=== PATIENT | male | born 1995 | race Caucasian/White ===

== ENCOUNTER 2017-09-24 21:26 | Emergency (ER) | payer MEDICAID ==
[~2017-09-24] VITALS: Ht 180.3 cm; Wt 117.9 kg
[2017-09-24 21:39] VITALS: BP 113/91
[2017-09-25] MEDS ORDERED: HYDROcodone-ACET 5/325MG TAB PO ONE (02:00)
== END 2017-09-25 02:09 | disposition home or self-care (01) ==
LOC: ER 21:26
DX: S13.4XXA Sprain of ligaments of cervical spine, initial encounter (principal); S10.93XA Contusion of unspecified part of neck, initial encounter; M62.838 Other muscle spasm; V43.92XA Unspecified car occupant injured in collision with other type car in traffic accident, initial encounter; Y93.89 Activity, other specified; Y99.8 Other external cause status; Y92.89 Other specified places as the place of occurrence of the external cause
CPT/HCPCS: 70450; 71045; 72125; 72131